=== PATIENT | male | born 1935 | race Caucasian/White ===

== ENCOUNTER 2016-11-07 19:44 | Emergency (ER) | payer MEDICARE, BC ==
[~2016-11-07] VITALS: Ht 177.8 cm; Wt 77.0 kg
[2016-11-07] MEDS ORDERED: ATOR20TA86 PO (20:05)
[2016-11-07] MEDS ORDERED: DONE10TA PO (20:05)
[2016-11-08] MEDS ORDERED: ONDANSETRON HCL 4 MG/2 ML VIAL IVP ONE (00:30)
[2016-11-08] MEDS ORDERED: MORPHINE SULFATE 2 MG/ML SYRINGE IVP ONE (00:30)
[2016-11-08] MEDS ORDERED: SODIUM CHLORIDE 0.9% 500 ML IV ONE (00:30)
[2016-11-08] MEDS ORDERED: MORPHINE SULFATE 4 MG/ML SYRINGE IVP ONE (00:30)
[2016-11-08 00:48] LABS: BASOPHILS % (AUTO) 0.2 % (0.0-2.0); HEMATOCRIT 37.4 % (41-53); HEMOGLOBIN 12.3 g/dL (13.5-17.5); LYMPHOCYTES # (AUTO) 1.3 K/uL (1.0-4.8); MEAN CORPUSCULAR HEMOGLOBIN 30.9 pg (26.0-34.0); MEAN CORPUSCULAR HGB CONC 32.8 G/dL (31.0-37.0); MEAN CORPUSCULAR VOLUME 94 fL (80-100); MONOCYTES # (AUTO) 0.9 K/uL (0.1-1.0); MONOCYTES % (AUTO) 11.6 % (2.0-9.0); NEUTROPHILS # (AUTO) 5.3 K/uL (1.8-7.7); NEUTROPHILS % (AUTO) 69.2 % (40.0-70.0); PLATELET COUNT (AUTO) 200 K/uL (150-450); RED BLOOD CELL COUNT(AUTO) 3.97 MIL/uL (4.50-5.90); RED CELL DISTRIBUTION WIDTH 13.4 % (11.5-14.5); WHITE BLOOD COUNT (AUTO) 7.7 K/uL (4.5-11.0)
[2016-11-08 00:58] LABS: PROTHROMBIN TIME 10.5 SEC (9.4-11.6)
[2016-11-08 01:03] LABS: ANION GAP 7 mmol/L (8-16); CALCIUM, TOTAL 8.6 mg/dL (8.8-10.5); CARBON DIOXIDE 29 mmol/L (22-29); CHLORIDE 103 mmol/L (98-107); CREATININE 0.95 mg/dL (0.60-1.30); GLOMERULAR FILTR. RATE CALC > 60 mL/min (>60); POTASSIUM 4.1 mmol/L (3.5-5.1); SODIUM SERUM 139 mmol/L (136-145); UREA NITROGEN, BLOOD 24 mg/dL (7-18)
[2016-11-08 01:10] LABS: ALANINE AMINOTRANSFERASE 29 U/L (12-78); ALBUMIN 3.5 g/dL (3.4-5.0); ASPARTATE AMINOTRANSFERASE 28 U/L (15-37); BILIRUBIN,TOTAL 0.6 mg/dL (0.1-1.0); TOTAL PROTEIN, SERUM 6.3 g/dL (6.4-8.2)
[2016-11-08] MEDS ORDERED: SODIUM CHLORIDE 0.9% 100 ML ONE (01:43)
[2016-11-08] MEDS ORDERED: IOVERSOL 350 MG/ML 100 ML VIAL ONE (01:43)
[2016-11-08 03:30] VITALS: BP 132/76
== END 2016-11-08 03:43 | disposition home or self-care (01) ==
LOC: EMS 19:46
DX: M47.892 Other spondylosis, cervical region (principal); E78.00 Pure hypercholesterolemia, unspecified
CPT/HCPCS: 36415; 70491; 80053; 85025; 85610; 85730; 96361; 96374; 96375; 99285; J2270; J2405; J7040; J7050; Q9967

== ENCOUNTER 2018-10-01 11:07 | Inpatient (IN) | payer MEDICARE, BC ==
[~2018-10-01] VITALS: Ht 182.9 cm; Wt 70.2 kg
[~2018-10-01 11:07] MED LIST: ATOR20TA86 PO; DONE10TA8 PO
[2018-10-01] MEDS ORDERED: QUET25TA PO (13:09)
[2018-10-01] MEDS ORDERED: FINA1 PO (13:09)
[2018-10-01] MEDS ORDERED: EZET10 PO (13:09)
[2018-10-01] MEDS ORDERED: MEMA10TA11 PO (13:09)
[2018-10-01] MEDS ORDERED: TRAM50TA4 PO (13:09)
[2018-10-01] MEDS ORDERED: CITA-106 PO (13:09)
[2018-10-01] MEDS ORDERED: SODIUM CHLORIDE 0.9% 1,000 ML IV ONE ×2 (13:45→15:30)
[2018-10-01 14:08] LABS: BASOPHILS % (AUTO) 0.3 % (0.0-2.0); HEMATOCRIT 33.9 % (41-53); HEMOGLOBIN 11.2 g/dL (13.5-17.5); LYMPHOCYTES # (AUTO) 1.1 K/uL (1.0-4.8); LYMPHOCYTES % (AUTO) 11.1 % (22.0-44.0); MEAN CORPUSCULAR HEMOGLOBIN 30.3 pg (26.0-34.0); MEAN CORPUSCULAR VOLUME 92 fL (80-100); MONOCYTES # (AUTO) 0.7 K/uL (0.1-1.0); NEUTROPHILS # (AUTO) 8.2 K/uL (1.8-7.7); NEUTROPHILS % (AUTO) 80.6 % (40.0-70.0); PLATELET COUNT (AUTO) 391 K/uL (150-450); RED CELL DISTRIBUTION WIDTH 13.5 % (11.5-14.5)
[2018-10-01 14:30] LABS: CALCIUM, TOTAL 9.4 mg/dL (8.8-10.5); CREATININE 1.33 mg/dL (0.60-1.30); POTASSIUM 4.3 mmol/L (3.5-5.1)
[2018-10-01 14:36] LABS: LACTIC ACID 1.6 mmol/L (0.4-2.0)
[2018-10-01 14:40] LABS: TROPONIN I < 0.02 ng/mL (0.00-0.05)
[2018-10-01 14:49] LABS: AMMONIA < 10 umol/L (11-32)
[2018-10-01 14:56] LABS: ALBUMIN 2.4 g/dL (3.4-5.0); BILIRUBIN,TOTAL 0.6 mg/dL (0.1-1.0); TOTAL PROTEIN, SERUM 6.6 g/dL (6.4-8.2)
[2018-10-01 17:41] LABS: APPEARANCE,URINE TURBID (CLEAR); BILIRUBIN,URINE NEGATIVE (NEGATIVE); GLUCOSE, URINE (UA) NEGATIVE (NEGATIVE); KETONES,URINE NEGATIVE (NEGATIVE); LEUKOCYTE ESTERASE ,URINE LARGE (NEGATIVE); OCCULT BLOOD,URINE LARGE (NEGATIVE); PROTEIN,URINE SEE CONFIRM (NEGATIVE)
[2018-10-01 17:45] LABS: AMPHET/METH SCREEN,URINE NEGATIVE (NEGATIVE); BARBITURATE SCREEN, URINE NEGATIVE (NEGATIVE); BENZODIAZEPINES SCREEN,URINE NEGATIVE (NEGATIVE); CANNABINOID SCREEN,URINE NEGATIVE (NEGATIVE); COCAINE SCREEN,URINE NEGATIVE (NEGATIVE); METHADONE SCREEN, URINE NEGATIVE (NEGATIVE); OPIATE SCREEN,URINE NEGATIVE (NEGATIVE)
[2018-10-01 17:49] LABS: BACTERIA,URINE Many /HPF (None Seen); NITRATE,URINE POSITIVE (NEGATIVE); SQUAMOUS EPITHELIAL CELL,UR Few /LPF (None Seen); SULFOSALICYLIC ACID,URINE 4+ (Negative); WBC,URINE >100 /HPF (0-5)
[2018-10-01 17:55] LABS: PHENCYCLIDINE SCREEN,URINE NEGATIVE (NEGATIVE)
[2018-10-01] MEDS ORDERED: CefTRIAXone 1 GM/DEXTROSE 50 ML IV ONE (18:15)
[2018-10-01] MEDS ORDERED: ACETAMINOPHEN 325 MG TABLET PO PRN (18:45)
[2018-10-01] MEDS ORDERED: ONDANSETRON HCL 4 MG/2 ML VIAL IVP PRN (18:45)
[2018-10-01 21:45] VITALS: BP 130/63
[2018-10-01] MEDS ORDERED: SODIUM CHLORIDE 0.9% 500 ML IV ONE (22:44)
[2018-10-01] MEDS ORDERED: TraMADol HCL 50 MG TABLET PO PRN (22:45)
[2018-10-02 06:13] VITALS: BP 120/60
[2018-10-02 07:41] VITALS: BP 127/53
[2018-10-02] MEDS: EZETIMIBE 10 MG TABLET PO SCH (08:27)
[2018-10-02] MEDS: MEMANTINE HCL 10 MG TABLET PO SCH (08:27)
[2018-10-02] MEDS: CITALOPRAM HYDROBROMIDE 20 MG TABLET PO SCH (08:27)
[2018-10-02] MEDS: QUEtiapine FUMARATE 25 MG TABLET PO SCH (08:27)
[2018-10-02 11:22] VITALS: BP 139/75
[2018-10-02 15:55] VITALS: BP 129/94
[2018-10-02] MEDS: CefTRIAXone 1 GM/DEXTROSE 50 ML IV SCH (17:35)
[2018-10-02] MEDS: ATORVASTATIN CALCIUM 20 MG TABLET PO SCH (19:58)
[2018-10-02] MEDS: DONEPEZIL HCL 10 MG TABLET PO SCH (19:58)
[2018-10-02 20:09] VITALS: BP_SYST 120; BP_SYST 142; BP_DIAS 64; BP_DIAS 69
[2018-10-02 23:58] VITALS: BP 135/64
[2018-10-03 05:21] VITALS: BP 133/68
[2018-10-03 06:26] LABS: ANION GAP 6 mmol/L (8-16); CARBON DIOXIDE 32 mmol/L (22-29); CHLORIDE 102 mmol/L (98-107); CREATININE 1.12 mg/dL (0.60-1.30); GLUCOSE,RANDOM 98 mg/dL (70-110); POTASSIUM 4.1 mmol/L (3.5-5.1); SODIUM SERUM 140 mmol/L (136-145); UREA NITROGEN, BLOOD 22 mg/dL (7-18)
[2018-10-03 06:56] LABS: GLOMERULAR FILTR. RATE CALC > 60 mL/min (>60)
[2018-10-03 07:54] VITALS: BP 142/53
[2018-10-03] MEDS: MEMANTINE HCL 10 MG TABLET PO SCH (08:12)
[2018-10-03] MEDS: CITALOPRAM HYDROBROMIDE 20 MG TABLET PO SCH (08:12)
[2018-10-03] MEDS: EZETIMIBE 10 MG TABLET PO SCH (08:13)
[2018-10-03] MEDS: QUEtiapine FUMARATE 25 MG TABLET PO SCH ×3 (08:13→21:20)
[2018-10-03 11:36] VITALS: BP 126/64
[2018-10-03 15:36] VITALS: BP 139/70
[2018-10-03] MEDS ORDERED: SODIUM CHLORIDE 0.9% 250 ML IV ONE (17:34)
[2018-10-03] MEDS: CefTRIAXone 1 GM/DEXTROSE 50 ML IV SCH (17:37)
[2018-10-03 19:58] VITALS: BP 144/71
[2018-10-03] MEDS: DONEPEZIL HCL 10 MG TABLET PO SCH (21:20)
[2018-10-03] MEDS: ATORVASTATIN CALCIUM 20 MG TABLET PO SCH (21:20)
[2018-10-04 00:23] VITALS: BP 164/73
[2018-10-04 04:30] VITALS: BP 152/72
[2018-10-04 06:32] LABS: ANION GAP 7 mmol/L (8-16); CALCIUM, TOTAL 8.9 mg/dL (8.8-10.5); CARBON DIOXIDE 33 mmol/L (22-29); CHLORIDE 104 mmol/L (98-107); CREATININE 1.06 mg/dL (0.60-1.30); GLUCOSE,RANDOM 111 mg/dL (70-110); POTASSIUM 3.6 mmol/L (3.5-5.1); SODIUM SERUM 144 mmol/L (136-145); UREA NITROGEN, BLOOD 18 mg/dL (7-18)
[2018-10-04 06:34] LABS: GLOMERULAR FILTR. RATE CALC > 60 mL/min (>60)
[2018-10-04 07:21] VITALS: BP 148/77
[2018-10-04] MEDS: CITALOPRAM HYDROBROMIDE 20 MG TABLET PO SCH (12:11)
[2018-10-04] MEDS: MEMANTINE HCL 10 MG TABLET PO SCH (12:12)
[2018-10-04] MEDS: EZETIMIBE 10 MG TABLET PO SCH (12:12)
[2018-10-04] MEDS: QUEtiapine FUMARATE 25 MG TABLET PO SCH ×2 (12:12→16:32)
[2018-10-04 16:33] VITALS: BP 152/78
[2018-10-04] MEDS ORDERED: AMLO-511 PO (17:34)
[2018-10-04] MEDS ORDERED: CIPR-278 PO (17:35)
[2018-10-04] MEDS: CefTRIAXone 1 GM/DEXTROSE 50 ML IV SCH (18:00)
== END 2018-10-04 18:30 | disposition home or self-care (01) | DRG 682 ==
LOC: EMS 11:09 → 6N 18:46
PROVIDERS: ADMIT Internal Medicine; ATTEND Internal Medicine
DX: N17.9 Acute kidney failure, unspecified (principal); G93.41 Metabolic encephalopathy; N39.0 Urinary tract infection, site not specified; F33.9 Major depressive disorder, recurrent, unspecified; F02.80 Dementia in other diseases classified elsewhere, unspecified severity, without behavioral disturbance, psychotic disturbance, mood disturbance, and anxiety; E78.5 Hyperlipidemia, unspecified; E78.00 Pure hypercholesterolemia, unspecified; G30.9 Alzheimer's disease, unspecified
CPT/HCPCS: 51701; 70450; 83605; 87081; 87086; 93005; G0378; J0696; J7030; J7040; J7050

== ENCOUNTER 2018-10-07 18:30 | Emergency (ER) | payer MEDICARE, BC ==
[~2018-10-07] VITALS: Ht 180.3 cm; Wt 68.2 kg
[~2018-10-07 18:30] MED LIST changes: +AMLO-511 PO; +CIPR-278 PO; +CITA-106 PO; +EZET10 PO; +FINA1 PO; +MEMA10TA11 PO; +QUET25TA PO; +TRAM50TA4 PO
[2018-10-07] MEDS ORDERED: TRAZ-219 PO ×2 (20:25)
[2018-10-07] MEDS ORDERED: QUET25TA PO (20:25)
[2018-10-07] MEDS ORDERED: FINA5TAB41 PO (20:25)
[2018-10-07] MEDS ORDERED: TRAM50TA4 PO (20:25)
[2018-10-07 22:00] VITALS: BP 121/78
== END 2018-10-07 22:32 | disposition home or self-care (01) ==
LOC: EMS 18:31
DX: Z04.3 Encounter for examination and observation following other accident (principal); F03.90 Unspecified dementia, unspecified severity, without behavioral disturbance, psychotic disturbance, mood disturbance, and anxiety; E78.00 Pure hypercholesterolemia, unspecified; Z79.899 Other long term (current) drug therapy; W07.XXXA Fall from chair, initial encounter; Y93.89 Activity, other specified; Y92.89 Other specified places as the place of occurrence of the external cause; Y99.8 Other external cause status